=== PATIENT | female | born 1990 | race Two or more races ===

== ENCOUNTER 2018-10-17 16:30 | Emergency (ER) | payer SELFPAY ==
[~2018-10-17] VITALS: Ht 160 cm; Wt 99.8 kg
[2018-10-17 16:35] VITALS: BP 148/90
== END 2018-10-17 20:14 | disposition home or self-care (01) ==
LOC: ER 16:35
DX: J06.9 Acute upper respiratory infection, unspecified (principal); H11.31 Conjunctival hemorrhage, right eye

== ENCOUNTER 2019-02-21 11:10 | Observation (INO) | payer MEDICAID ==
[2019-02-21] MEDS ORDERED: PREN-96 PO (11:34)
[2019-02-21] MEDS ORDERED: FERR1TAB36 PO (11:35)
[2019-02-21 12:24] LABS: Basophils # (auto) 0.1 uL; Lymphocytes # (auto) 1.8 uL
[2019-02-21 12:26] LABS: Basophils % (auto) 0.7 % (0.0-2.0); Eosinophils # (auto) 0.5 uL; Eosinophils % (auto) 5.6 % (0.0-7.0); Hematocrit 31.5 % (36.0-46.0); Lymphocytes % (auto) 22.3 % (10.0-50.0); Mean Corpuscular Hemoglobin 23.6 pg (28.0-32.0); Mean Corpuscular Hgb Conc. 31.6 g/dL (32.0-36.0); Mean Corpuscular Volume 74.7 fL (80.0-100.0); Monocytes # (auto) 0.5 uL; Monocytes % (auto) 6.6 % (0.0-12.0); Neutrophils # (auto) 5.3 uL; Neutrophils % (auto) 64.8 % (37.0-80.0); Platelet Count (auto) 123 10^3/uL (140-450); Red Blood Cells 4.22 10^6/uL (4.0-5.20); Red Cell Distribution Width 15.3 % (11.8-14.3); White Blood Cell 8.1 10^3/uL (4.4-10.8)
[2019-02-21 12:41] LABS: Urine Bacteria FEW /hpf (None Seen); Urine Blood Negative /uL (Negative); Urine Specific Gravity 1.013 (1.001-1.035); Urine WBC 3 /hpf (0 - 5)
[2019-02-21 12:43] LABS: Albumin 2.5 g/dL (3.4-5.0); BUN/Creatinine Ratio 13.3; Calcium 8.6 mg/dL (8.5-10.1); Uric Acid 3.2 mg/dL (2.6-6.0)
[2019-02-21 12:46] LABS: Bilirubin, Total 0.2 mg/dL (0.2-1.0); Total Protein 6.6 g/dL (6.4-8.2)
[2019-02-21 12:47] LABS: INR 0.93 (0.9-1.15); Partial Thromboplastin Time 25.5 sec (23.78-33.04)
== END 2019-02-21 14:30 | disposition home or self-care (01) | DRG 566 ==
LOC: LDRP 11:10
PROVIDERS: ADMIT Obstetrics & Gynecology; ATTEND Obstetrics & Gynecology
DX: O13.3 Gestational [pregnancy-induced] hypertension without significant proteinuria, third trimester (principal); O26.893 Other specified pregnancy related conditions, third trimester; R51 Headache; Z87.891 Personal history of nicotine dependence; Z3A.30 30 weeks gestation of pregnancy
CPT/HCPCS: 36415; 59025; 80053; 81001; 81002; 84550; 85025; 85610; 85730; G0378

== ENCOUNTER 2019-02-26 08:40 | Observation (INO) | payer MEDICAID ==
[~2019-02-26 08:40] MED LIST: FERR1TAB36 PO; PREN-96 PO
[2019-02-26 09:57] LABS: Basophils # (auto) 0.1 uL; Lymphocytes # (auto) 1.7 uL; Monocytes # (auto) 0.4 uL; White Blood Cell 7.3 10^3/uL (4.4-10.8)
[2019-02-26 09:58] LABS: Basophils % (auto) 0.7 % (0.0-2.0); Eosinophils # (auto) 0.4 uL; Eosinophils % (auto) 5.9 % (0.0-7.0); Hematocrit 33.3 % (36.0-46.0); Hemoglobin 10.6 g/dL (12.2-16.2); Lymphocytes % (auto) 23.4 % (10.0-50.0); Mean Corpuscular Hemoglobin 24.3 pg (28.0-32.0); Mean Corpuscular Hgb Conc. 31.8 g/dL (32.0-36.0); Mean Corpuscular Volume 76.5 fL (80.0-100.0); Monocytes % (auto) 5.5 % (0.0-12.0); Neutrophils # (auto) 4.7 uL; Neutrophils % (auto) 64.5 % (37.0-80.0); Platelet Count (auto) 97 10^3/uL (140-450); Red Blood Cells 4.35 10^6/uL (4.0-5.20)
[2019-02-26] MEDS ORDERED: BETAMETHASONE ACET (6MG/ML) 5ML VIAL IM SCH (10:00)
[2019-02-26 10:16] LABS: INR 0.92 (0.9-1.15); Partial Thromboplastin Time 26.2 sec (23.78-33.04); Prothrombin Time 9.9 sec (9.27-12.13)
[2019-02-26 10:17] LABS: Albumin 2.4 g/dL (3.4-5.0); Calcium 8.7 mg/dL (8.5-10.1); Potassium 3.7 mmol/L (3.5-5.1); Uric Acid 3.8 mg/dL (2.6-6.0)
[2019-02-26 10:20] LABS: BUN/Creatinine Ratio 8.8; Bilirubin, Total 0.2 mg/dL (0.2-1.0); Total Protein 6.4 g/dL (6.4-8.2)
[2019-02-26 14:17] LABS: Protein, Urine 6.2 mg/dL (0.0-11.9)
[2019-02-26 15:08] LABS: 24 Hr. Total Protein, Urine 170.5 mg/24 Hr (<149.1)
== END 2019-02-26 10:30 | disposition home or self-care (01) | DRG 566 ==
LOC: LDRP 08:40
PROVIDERS: ADMIT Specialist; ATTEND Specialist
DX: O13.3 Gestational [pregnancy-induced] hypertension without significant proteinuria, third trimester (principal); Z3A.31 31 weeks gestation of pregnancy
CPT/HCPCS: 36415; 59025; 80053; 81002; 84156; 84550; 85025; 85610; 85730; 96372; G0378; J0702

== ENCOUNTER 2019-02-27 11:18 | Observation (INO) | payer MEDICAID ==
[~2019-02-27] VITALS: Ht 162.6 cm; Wt 110.2 kg
[2019-02-27] MEDS ORDERED: BETAMETHASONE ACET (6MG/ML) 5ML VIAL IM SCH (11:40)
== END 2019-02-27 12:15 | disposition home or self-care (01) | DRG 566 ==
LOC: LDRP 11:18
PROVIDERS: ADMIT Obstetrics & Gynecology; ATTEND Obstetrics & Gynecology
DX: O13.3 Gestational [pregnancy-induced] hypertension without significant proteinuria, third trimester (principal); Z3A.31 31 weeks gestation of pregnancy
CPT/HCPCS: 59025; 81002; 96372; G0378; J0702

== ENCOUNTER 2019-03-02 19:00 | Observation (INO) | payer MEDICAID ==
[~2019-03-02] VITALS: Ht 162.6 cm; Wt 110.2 kg
[2019-03-02 20:13] LABS: Urine Bacteria MOD /hpf (None Seen); Urine Blood Negative /uL (Negative); Urine Mucus FEW (None Seen); Urine Specific Gravity 1.024 (1.001-1.035); Urine WBC 13 /hpf (0 - 5)
== END 2019-03-02 21:10 | disposition home or self-care (01) | DRG 566 ==
LOC: LDRP 19:00
PROVIDERS: ADMIT Obstetrics & Gynecology; ATTEND Obstetrics & Gynecology
DX: O13.3 Gestational [pregnancy-induced] hypertension without significant proteinuria, third trimester (principal); Z3A.31 31 weeks gestation of pregnancy; Z87.891 Personal history of nicotine dependence
CPT/HCPCS: 59025; 76818; 81001; 81002; G0378

== ENCOUNTER 2019-03-05 08:50 | Observation (INO) | payer MEDICAID | END 2019-03-05 10:20 | disposition home or self-care (01) | DRG 566 | LOC: LDRP 08:50 | PROVIDERS: ADMIT Specialist; ATTEND Specialist | DX: O13.3 Gestational [pregnancy-induced] hypertension without significant proteinuria, third trimester (principal); O26.893 Other specified pregnancy related conditions, third trimester; N89.8 Other specified noninflammatory disorders of vagina; R51 Headache; Z3A.32 32 weeks gestation of pregnancy; Z87.891 Personal history of nicotine dependence | CPT/HCPCS: 59025; 76818; 81002; G0378 ==

== ENCOUNTER 2019-03-08 11:12 | Observation (INO) | payer MEDICAID | END 2019-03-08 12:25 | disposition home or self-care (01) | DRG 566 | LOC: LDRP 11:12 | PROVIDERS: ADMIT Obstetrics & Gynecology; ATTEND Obstetrics & Gynecology | DX: O13.3 Gestational [pregnancy-induced] hypertension without significant proteinuria, third trimester (principal); Z3A.32 32 weeks gestation of pregnancy; Z87.891 Personal history of nicotine dependence | CPT/HCPCS: 59025; 76818; 81002; G0378 ==

== ENCOUNTER 2019-03-12 09:15 | Observation (INO) | payer MEDICAID ==
[~2019-03-12] VITALS: Ht 162.6 cm; Wt 99.9 kg
[2019-03-12] MEDS ORDERED: LABE100T4 PO (09:48)
[2019-03-12] MEDS ORDERED: TERBUTALINE SULFATE 1 MG/ML 1ML VIAL SC ONE (10:35)
[2019-03-12 10:40] LABS: Protein, Urine 8.2 mg/dL (0.0-11.9)
[2019-03-12] MEDS: TERBUTALINE SULFATE 1 MG/ML 1ML VIAL SC PRN ×3 (10:41→11:43)
[2019-03-12 10:55] LABS: 24 Hr. Total Protein, Urine 155.8 mg/24 Hr (<149.1)
== END 2019-03-12 12:46 | disposition home or self-care (01) | DRG 566 ==
LOC: LDRP 09:15
PROVIDERS: ADMIT Specialist; ATTEND Specialist
DX: O13.3 Gestational [pregnancy-induced] hypertension without significant proteinuria, third trimester (principal); Z3A.33 33 weeks gestation of pregnancy; Z87.891 Personal history of nicotine dependence
CPT/HCPCS: 59025; 76818; 81002; 84156; 96372; G0378; J3105; 96365; 96366

== ENCOUNTER 2019-03-15 10:10 | Observation (INO) | payer MEDICAID ==
[~2019-03-15 10:10] MED LIST changes: +LABE100T4 PO
[2019-03-15 12:41] LABS: Hepatitis B Surface Antibody Positive
[2019-03-15 13:03] LABS: Hepatitis B Surface Antigen Negative (Negative)
== END 2019-03-15 11:45 | disposition home or self-care (01) | DRG 566 ==
LOC: LDRP 10:10
PROVIDERS: ADMIT Obstetrics & Gynecology; ATTEND Obstetrics & Gynecology
DX: O13.3 Gestational [pregnancy-induced] hypertension without significant proteinuria, third trimester (principal); Z3A.33 33 weeks gestation of pregnancy
CPT/HCPCS: 36415; 59025; 76818; 81002; 86703; 86706; 86803; 87340; G0378

== ENCOUNTER 2019-03-19 11:29 | Observation (INO) | payer MEDICAID ==
[2019-03-19 13:07] LABS: Basophils # (auto) 0.1 uL; Hemoglobin 11.2 g/dL (12.2-16.2); Lymphocytes # (auto) 1.7 uL; Monocytes # (auto) 0.4 uL; Neutrophils # (auto) 4.7 uL; Nucleated Red Blood Cells % 0.1 %
[2019-03-19 13:10] LABS: Basophils % (auto) 0.7 % (0.0-2.0); Eosinophils # (auto) 0.3 uL; Eosinophils % (auto) 3.7 % (0.0-7.0); Hematocrit 34.5 % (36.0-46.0); Lymphocytes % (auto) 23.5 % (10.0-50.0); Mean Corpuscular Hemoglobin 25.1 pg (28.0-32.0); Mean Corpuscular Hgb Conc. 32.4 g/dL (32.0-36.0); Mean Corpuscular Volume 77.5 fL (80.0-100.0); Monocytes % (auto) 6.2 % (0.0-12.0); Neutrophils % (auto) 65.9 % (37.0-80.0); Platelet Count (auto) 106 10^3/uL (140-450); Red Blood Cells 4.45 10^6/uL (4.0-5.20); White Blood Cell 7.1 10^3/uL (4.4-10.8)
[2019-03-19 13:15] LABS: INR 0.93 (0.9-1.15); Partial Thromboplastin Time 25.2 sec (23.64-32.05)
[2019-03-19 13:21] LABS: Red Cell Distribution Width 21.6 % (11.8-14.3)
[2019-03-19 13:27] LABS: Potassium 3.9 mmol/L (3.5-5.1)
[2019-03-19 13:43] LABS: Albumin 2.4 g/dL (3.4-5.0); Bilirubin, Total 0.2 mg/dL (0.2-1.0); Calcium 8.7 mg/dL (8.5-10.1); Total Protein 6.5 g/dL (6.4-8.2)
[2019-03-19 20:37] LABS: Urine Bacteria MANY /hpf (None Seen); Urine Blood Negative /uL (Negative); Urine Specific Gravity 1.009 (1.001-1.035); Urine WBC 10 /hpf (0 - 5)
== END 2019-03-19 14:00 | disposition home or self-care (01) | DRG 566 ==
LOC: LDRP 11:29
PROVIDERS: ADMIT Obstetrics & Gynecology; ATTEND Obstetrics & Gynecology
DX: O13.3 Gestational [pregnancy-induced] hypertension without significant proteinuria, third trimester (principal); O26.893 Other specified pregnancy related conditions, third trimester; R51 Headache; Z3A.34 34 weeks gestation of pregnancy
CPT/HCPCS: 36415; 59025; 76818; 80053; 81001; 81002; 84550; 85025; 85610; 85730; G0378

== ENCOUNTER 2019-03-22 10:02 | Observation (INO) | payer MEDICAID ==
[~2019-03-22] VITALS: Ht 162.6 cm; Wt 112.0 kg
[2019-03-22] MEDS: TERBUTALINE SULFATE 1 MG/ML 1ML VIAL SC SCH ×2 (12:52→13:22)
== END 2019-03-22 14:30 | disposition home or self-care (01) | DRG 566 ==
LOC: LDRP 10:02
PROVIDERS: ADMIT Specialist; ATTEND Specialist
DX: O13.3 Gestational [pregnancy-induced] hypertension without significant proteinuria, third trimester (principal); O26.893 Other specified pregnancy related conditions, third trimester; N89.8 Other specified noninflammatory disorders of vagina; Z87.891 Personal history of nicotine dependence; Z3A.34 34 weeks gestation of pregnancy
CPT/HCPCS: 59025; 76818; 81002; 96372; G0378; J3105

== ENCOUNTER 2019-03-26 11:31 | Observation (INO) | payer MEDICAID ==
[2019-03-26 14:30] LABS: Basophils # (auto) 0.1 uL; Hematocrit 36.5 % (36.0-46.0); Hemoglobin 11.8 g/dL (12.2-16.2); Mean Corpuscular Hemoglobin 25.2 pg (28.0-32.0); Monocytes # (auto) 0.5 uL; Monocytes % (auto) 7.1 % (0.0-12.0); White Blood Cell 7.7 10^3/uL (4.4-10.8)
[2019-03-26 14:32] LABS: Basophils % (auto) 0.9 % (0.0-2.0); Eosinophils # (auto) 0.4 uL; Eosinophils % (auto) 4.8 % (0.0-7.0); Lymphocytes # (auto) 1.9 uL; Lymphocytes % (auto) 24.4 % (10.0-50.0); Mean Corpuscular Hgb Conc. 32.4 g/dL (32.0-36.0); Mean Corpuscular Volume 77.8 fL (80.0-100.0); Neutrophils # (auto) 4.8 uL; Neutrophils % (auto) 62.8 % (37.0-80.0); Nucleated Red Blood Cells % 0.1 %; Platelet Count (auto) 105 10^3/uL (140-450); Red Blood Cells 4.69 10^6/uL (4.0-5.20)
[2019-03-26 14:45] LABS: Red Cell Distribution Width 23.8 % (11.8-14.3)
[2019-03-26 14:54] LABS: Albumin 2.5 g/dL (3.4-5.0); Calcium 8.7 mg/dL (8.5-10.1); Potassium 3.9 mmol/L (3.5-5.1)
[2019-03-26 14:58] LABS: BUN/Creatinine Ratio 9.8; Bilirubin, Total 0.3 mg/dL (0.2-1.0); Total Protein 6.8 g/dL (6.4-8.2); Uric Acid 4.2 mg/dL (2.6-6.0)
== END 2019-03-26 14:30 | disposition home or self-care (01) | DRG 566 ==
LOC: LDRP 11:31
PROVIDERS: ADMIT Specialist; ATTEND Specialist
DX: O13.3 Gestational [pregnancy-induced] hypertension without significant proteinuria, third trimester (principal); Z3A.35 35 weeks gestation of pregnancy; Z87.891 Personal history of nicotine dependence
CPT/HCPCS: 36415; 59025; 76818; 80053; 81002; 84550; 85025; G0378

== ENCOUNTER 2019-03-27 20:35 | Observation (INO) | payer MEDICAID ==
[2019-03-27] MEDS: TERBUTALINE SULFATE 1 MG/ML 1ML VIAL SC SCH ×3 (21:21→22:03)
== END 2019-03-27 22:30 | disposition home or self-care (01) | DRG 566 ==
LOC: LDRP 20:35
PROVIDERS: ADMIT Specialist; ATTEND Specialist
DX: O26.893 Other specified pregnancy related conditions, third trimester (principal); H53.8 Other visual disturbances; O62.9 Abnormality of forces of labor, unspecified; Z3A.35 35 weeks gestation of pregnancy; Z87.891 Personal history of nicotine dependence
CPT/HCPCS: 59025; 81002; 96372; G0378; J3105

== ENCOUNTER 2019-03-29 14:30 | Observation (INO) | payer MEDICAID | END 2019-03-29 16:00 | disposition home or self-care (01) | DRG 566 | LOC: LDRP 14:30 | PROVIDERS: ADMIT Obstetrics & Gynecology; ATTEND Obstetrics & Gynecology | DX: O13.3 Gestational [pregnancy-induced] hypertension without significant proteinuria, third trimester (principal); O62.9 Abnormality of forces of labor, unspecified; Z3A.35 35 weeks gestation of pregnancy | CPT/HCPCS: 76818; G0378; 59025; 81002 ==

== ENCOUNTER 2019-04-01 06:55 | Observation (INO) | payer MEDICAID | END 2019-04-01 09:05 | disposition home or self-care (01) | DRG 566 | LOC: LDRP 06:55 | PROVIDERS: ADMIT Obstetrics & Gynecology; ATTEND Obstetrics & Gynecology | DX: O13.3 Gestational [pregnancy-induced] hypertension without significant proteinuria, third trimester (principal); O62.9 Abnormality of forces of labor, unspecified; Z3A.36 36 weeks gestation of pregnancy; Z87.891 Personal history of nicotine dependence | CPT/HCPCS: 76818; G0378; 59025; 81002 ==

== ENCOUNTER 2019-04-05 10:15 | Observation (INO) | payer MEDICAID ==
[2019-04-05 12:06] LABS: Basophils # (auto) 0.1 uL; Basophils % (auto) 0.9 % (0.0-2.0); Eosinophils # (auto) 0.3 uL; Lymphocytes # (auto) 1.7 uL; Monocytes # (auto) 0.5 uL; Neutrophils # (auto) 4.2 uL; White Blood Cell 6.8 10^3/uL (4.4-10.8)
[2019-04-05 12:08] LABS: Eosinophils % (auto) 4.6 % (0.0-7.0); Hematocrit 37.1 % (36.0-46.0); Hemoglobin 11.9 g/dL (12.2-16.2); Lymphocytes % (auto) 24.7 % (10.0-50.0); Mean Corpuscular Hemoglobin 25.9 pg (28.0-32.0); Mean Corpuscular Hgb Conc. 32.1 g/dL (32.0-36.0); Mean Corpuscular Volume 80.5 fL (80.0-100.0); Monocytes % (auto) 7.9 % (0.0-12.0); Neutrophils % (auto) 61.9 % (37.0-80.0); Platelet Count (auto) 129 10^3/uL (140-450); Red Blood Cells 4.61 10^6/uL (4.0-5.20)
[2019-04-05 12:14] LABS: Red Cell Distribution Width 24.5 % (11.8-14.3)
[2019-04-05 12:18] LABS: Potassium 3.7 mmol/L (3.5-5.1)
[2019-04-05 12:24] LABS: INR < 0.93 (0.9-1.15); Partial Thromboplastin Time 25.4 sec (23.64-32.05)
[2019-04-05 12:25] LABS: Albumin 2.4 g/dL (3.4-5.0); BUN/Creatinine Ratio 12.8; Bilirubin, Total 0.2 mg/dL (0.2-1.0); Total Protein 6.5 g/dL (6.4-8.2); Uric Acid 3.8 mg/dL (2.6-6.0)
[2019-04-05 12:25] LABS: Urine Bacteria MANY /hpf (None Seen); Urine Blood Negative /uL (Negative); Urine Mucus FEW (None Seen); Urine WBC 11 /hpf (0 - 5)
== END 2019-04-05 13:25 | disposition home or self-care (01) | DRG 566 ==
LOC: LDRP 10:15
PROVIDERS: ADMIT Obstetrics & Gynecology; ATTEND Obstetrics & Gynecology
DX: O13.3 Gestational [pregnancy-induced] hypertension without significant proteinuria, third trimester (principal); Z3A.36 36 weeks gestation of pregnancy
CPT/HCPCS: 36415; 59025; 76818; 80053; 81001; 81002; 84550; 85025; 85610; 85730; G0378

== ENCOUNTER 2019-04-07 08:13 | Observation (INO) | payer MEDICAID ==
[~2019-04-07] VITALS: Ht 162.6 cm; Wt 113.9 kg
[2019-04-07 10:09] LABS: 24 Hr. Total Protein, Urine 201.4 mg/24 Hr (<149.1); Protein, Urine 7.6 mg/dL (0.0-11.9)
== END 2019-04-07 11:00 | disposition home or self-care (01) | DRG 566 ==
LOC: LDRP 08:13
PROVIDERS: ADMIT Specialist; ATTEND Specialist
DX: O13.3 Gestational [pregnancy-induced] hypertension without significant proteinuria, third trimester (principal); O62.9 Abnormality of forces of labor, unspecified; Z3A.37 37 weeks gestation of pregnancy; Z87.891 Personal history of nicotine dependence
CPT/HCPCS: 59025; 76818; 84156; G0378

== ENCOUNTER 2019-04-09 09:10 | Observation (INO) | payer MEDICAID ==
[2019-04-09 10:28] LABS: Basophils # (auto) 0.1 uL; Eosinophils # (auto) 0.3 uL; White Blood Cell 6.6 10^3/uL (4.4-10.8)
[2019-04-09 10:30] LABS: Hematocrit 36.3 % (36.0-46.0); Lymphocytes # (auto) 1.9 uL; Lymphocytes % (auto) 28.5 % (10.0-50.0); Mean Corpuscular Hemoglobin 26.5 pg (28.0-32.0); Mean Corpuscular Volume 80.3 fL (80.0-100.0); Monocytes # (auto) 0.3 uL; Monocytes % (auto) 5.3 % (0.0-12.0); Neutrophils % (auto) 61.2 % (37.0-80.0); Nucleated Red Blood Cells % 0.2 %; Platelet Count (auto) 108 10^3/uL (140-450); Red Blood Cells 4.51 10^6/uL (4.0-5.20)
[2019-04-09 10:38] LABS: Potassium 3.5 mmol/L (3.5-5.1)
[2019-04-09 10:43] LABS: Albumin 2.5 g/dL (3.4-5.0); BUN/Creatinine Ratio 15.4; Bilirubin, Total 0.2 mg/dL (0.2-1.0); Calcium 8.6 mg/dL (8.5-10.1); Total Protein 6.2 g/dL (6.4-8.2); Uric Acid 4.2 mg/dL (2.6-6.0)
[2019-04-09 11:40] LABS: INR < 0.93 (0.9-1.15); Partial Thromboplastin Time 25.9 sec (23.64-32.05)
== END 2019-04-09 11:30 | disposition home or self-care (01) | DRG 566 ==
LOC: LDRP 09:10
PROVIDERS: ADMIT Obstetrics & Gynecology; ATTEND Obstetrics & Gynecology
DX: O13.3 Gestational [pregnancy-induced] hypertension without significant proteinuria, third trimester (principal); Z3A.37 37 weeks gestation of pregnancy; Z87.891 Personal history of nicotine dependence
CPT/HCPCS: 36415; 59025; 76818; 80053; 81002; 84550; 85025; 85610; 85730; G0378

== ENCOUNTER 2019-04-13 11:11 | Observation (INO) | payer MEDICAID | END 2019-04-13 12:15 | disposition home or self-care (01) | DRG 566 | LOC: LDRP 11:11 | PROVIDERS: ADMIT Obstetrics & Gynecology; ATTEND Obstetrics & Gynecology | DX: O26.893 Other specified pregnancy related conditions, third trimester (principal); N89.8 Other specified noninflammatory disorders of vagina; R51 Headache; Z3A.37 37 weeks gestation of pregnancy | CPT/HCPCS: 76818; G0378; 59025; 81002 ==

== ENCOUNTER 2019-04-18 09:33 | Observation (INO) | payer MEDICAID ==
[2019-04-18] MEDS ORDERED: LABE200T18 PO (09:51)
[2019-04-18 10:42] LABS: Basophils # (auto) 0.1 uL; Basophils % (auto) 0.8 % (0.0-2.0); Eosinophils # (auto) 0.2 uL; Hemoglobin 12.2 g/dL (12.2-16.2); Lymphocytes # (auto) 1.8 uL; Monocytes # (auto) 0.5 uL
[2019-04-18 10:43] LABS: Eosinophils % (auto) 3.2 % (0.0-7.0); Lymphocytes % (auto) 26.1 % (10.0-50.0); Mean Corpuscular Hemoglobin 26.2 pg (28.0-32.0); Mean Corpuscular Hgb Conc. 32.1 g/dL (32.0-36.0); Mean Corpuscular Volume 81.7 fL (80.0-100.0); Monocytes % (auto) 7.5 % (0.0-12.0); Neutrophils # (auto) 4.3 uL; Neutrophils % (auto) 62.4 % (37.0-80.0); Nucleated Red Blood Cells % 0.1 %; Platelet Count (auto) 102 10^3/uL (140-450); Red Blood Cells 4.65 10^6/uL (4.0-5.20); White Blood Cell 6.9 10^3/uL (4.4-10.8)
[2019-04-18 10:48] LABS: Urine Bacteria FEW /hpf (None Seen); Urine Blood Negative /uL (Negative); Urine Mucus FEW (None Seen); Urine Specific Gravity 1.025 (1.001-1.035); Urine WBC 4 /hpf (0 - 5)
[2019-04-18 10:59] LABS: INR < 0.93 (0.9-1.15); Partial Thromboplastin Time 24.2 sec (23.64-32.05)
[2019-04-18 11:02] LABS: Albumin 2.5 g/dL (3.4-5.0); BUN/Creatinine Ratio 15.2; Calcium 9.3 mg/dL (8.5-10.1); Uric Acid 5.5 mg/dL (2.6-6.0)
[2019-04-18 11:30] LABS: Bilirubin, Total 0.2 mg/dL (0.2-1.0); Potassium 3.7 mmol/L (3.5-5.1); Total Protein 6.6 g/dL (6.4-8.2)
[2019-04-19 07:06] LABS: RPR Non Reactive (Non Reactive)
== END 2019-04-18 11:55 | disposition home or self-care (01) | DRG 566 ==
LOC: LDRP 09:33
PROVIDERS: ADMIT Specialist; ATTEND Specialist
DX: O13.3 Gestational [pregnancy-induced] hypertension without significant proteinuria, third trimester (principal); O12.03 Gestational edema, third trimester; Z3A.38 38 weeks gestation of pregnancy; Z87.891 Personal history of nicotine dependence
CPT/HCPCS: 36415; 59025; 76818; 80053; 81001; 84112; 84550; 85025; 85610; 85730; 86592; 86850; 86900; 86901; G0378

== ENCOUNTER 2019-04-20 04:02 | Inpatient (IN) | payer MEDICAID ==
[~2019-04-20] VITALS: Ht 162.6 cm; Wt 115.7 kg
[2019-04-20] VITALS (17 sets, daily range): BP systolic 98–152; BP diastolic 44–94
[~2019-04-20 04:02] MED LIST changes: -LABE100T4 PO; +LABE200T18 PO
[2019-04-20 06:09] LABS: Basophils # (auto) 0 uL; Basophils % (auto) 0.6 % (0.0-2.0); Eosinophils # (auto) 0.3 uL; Eosinophils % (auto) 3.9 % (0.0-7.0); Hematocrit 35.8 % (36.0-46.0); Hemoglobin 11.9 g/dL (12.2-16.2); Lymphocytes % (auto) 25.9 % (10.0-50.0); Mean Corpuscular Hemoglobin 27.3 pg (28.0-32.0); Mean Corpuscular Hgb Conc. 33.2 g/dL (32.0-36.0); Mean Corpuscular Volume 82.1 fL (80.0-100.0); Monocytes # (auto) 0.5 uL; Monocytes % (auto) 6.1 % (0.0-12.0); Neutrophils # (auto) 4.8 uL; Neutrophils % (auto) 63.5 % (37.0-80.0); Platelet Count (auto) 98 10^3/uL (140-450); Red Blood Cells 4.36 10^6/uL (4.0-5.20); White Blood Cell 7.6 10^3/uL (4.4-10.8)
[2019-04-20 06:10] LABS: Red Cell Distribution Width 24.4 % (11.8-14.3)
[2019-04-20] MEDS ORDERED: TETRACAINE 1% INJ 2 ML VIAL IJ ONE (07:48)
[2019-04-20] MEDS ORDERED: MORPHINE SULF(PF) 0.5MG/ML 10ML VIAL ONE (07:50)
[2019-04-20] MEDS ORDERED: OXYTOCIN 10 UNIT/ML 10ML VIAL ONE (07:54)
[2019-04-20] MEDS ORDERED: PHENYLEPHRINE HCL 10 MG/ML VL ONE (07:55)
[2019-04-20] MEDS ORDERED: ePHEDrine SULFATE 50 MG/ML AMP ONE (07:55)
[2019-04-20] MEDS ORDERED: ceFAZolin 1GM VL ONE (07:55)
[2019-04-20] MEDS ORDERED: METOCLOPRAMIDE HCL 5MG/ml INJ 2ml VIAL ONE (08:34)
[2019-04-20] MEDS ORDERED: MIDAZOLAM HCL 1MG/1ML-2 ML VIAL ONE (08:55)
[2019-04-20] MEDS ORDERED: ONDANSETRON HCL 4 MG/2 ML VIAL ONE (08:56)
[2019-04-20] MEDS ORDERED: LACT. RINGERS/OXYTOCIN 20UNITS 1,000 ML IV SCH (09:20)
[2019-04-20] MEDS ORDERED: ceFAZolin 1GM/50ML 50 ML IV SCH (09:30)
[2019-04-20] MEDS ORDERED: KETOROLAC TROMETH 15 mg/ml 1ML VL IV PRN (09:30)
[2019-04-20] MEDS ORDERED: ONDANSETRON HCL 4 MG/2 ML VIAL IV PRN (09:30)
[2019-04-20] MEDS ORDERED: ONDANSETRON HCL 4 MG/2 ML VIAL IV ONE (09:45)
[2019-04-20] MEDS ORDERED: NALOXONE HCL 0.4 MG/ML VIAL IV PRN (09:45)
[2019-04-20] MEDS ORDERED: HYDROmorphone HCL 2 MG/ML VL IV PRN (09:45)
[2019-04-20] MEDS ORDERED: diphenhdrAMINE HCL 50 MG/1 ML VL IV PRN (09:45)
[2019-04-20] MEDS ORDERED: OXYTOCIN 10UNIT/ML 1ML VIAL ONE (09:53)
--- NOTE | 2019-04-20 10:11 | NUR ---
Report received from BENDING SHED WORKERJUANA Gibbons on stable pt. VS reviewed, meds given reviewed, 325 ml urine output with grady in place, fundus 1 below U with scant bleeding, and lower abdominal incision dressing c/d/i.
--- NOTE | 2019-04-20 10:24 | NUR ---
Pt arrives to the unit via bed in stable condition, accompanied by MACHINE I COREMAKER Haris Pope. Fundal check performed with MACHINE I COREMAKER, fundus noted to be at U, firm with moderate bleeding with a small clot noted. Olivia care performed and olivia pad and underpad changed. Pt tolerated well.
--- NOTE | 2019-04-20 10:30 | NUR ---
Lower abdominal incision dressing C/D/I with abdominal binder in place. Incentive Spirometer at bedside, pt educated on importance of use at least 10 x hour while awake, pt verbalizes understanding of teaching and return demonstration provided. SCD's on and running. Pt stable, VS stable. call light within reach and FOB at bedside. Addendum: 04/20/19 at 1459 by Kandace Romero RN Amended: Links added.
--- NOTE | 2019-04-20 11:25 | NUR ---
DR DICKSON NOTIFIED AND INFORMED OF PT'S MODERATE BLEEDING WITH A FIRM FUNDUS. ORDERS RECEIVED FOR CYTOTEC 800 MCG 200 SUBLINGUAL AND 600 RECTAL FOR BLEEDING.
[2019-04-20] MEDS ORDERED: METHYLERGONOVINE MALEATE 0.2 MG/ML AMP IM ONE (11:30)
[2019-04-20] MEDS: MORPHINE SULFATE 4 MG/ML SYR/VIAL IV PRN ×3 (12:00→20:16)
[2019-04-20] MEDS: LACTATED RINGER'S 1,000 ML IV SCH ×3 (12:35→17:43)
[2019-04-20] MEDS ORDERED: CARBOPROST TROMETHAMINE 250 MCG/1ML VIAL IM PRN (13:15)
[2019-04-20] MEDS ORDERED: DIPHENOXYLATE W/ATROPINE 2.5 MG TAB PO PRN (13:15)
--- NOTE | 2019-04-20 14:35 | NUR ---
Dr. Elizondo called and informed of VS trends, urine output, and scant bleeding noted. Orders received for IV Tylenol x 1 dose for pain and notify Dr. Elizondo if BP's elevate above 160/95, for further orders.
[2019-04-20] MEDS ORDERED: ACETAMINOPHEN IV 1000 MG/100ML (10MG/ML) IV ONE (14:45)
[2019-04-20] MEDS ORDERED: ACETAMINOPHEN IV 100 ML IV ONE (15:08)
[2019-04-20] MEDS: ceFAZolin 1GM/50ML 50 ML IV SCH (16:42)
--- NOTE | 2019-04-20 18:30 | NUR ---
Report given to Garth OLIVAS RN on stable pt. Relinquished care. Addendum: 04/20/19 at 1835 by Kandace Romero RN Amended: Links added.
--- NOTE | 2019-04-20 19:40 | NUR ---
Dr. Elizondo called, updated on patient, VS reviewed, informed uterus firm, scant bleeding. Per Dr. Elizondo patient okay to have clear liquids.
[2019-04-20 20:13] LABS: Basophils # (auto) 0.1 uL; Basophils % (auto) 0.6 % (0.0-2.0); Eosinophils # (auto) 0.1 uL; White Blood Cell 11.4 10^3/uL (4.4-10.8)
[2019-04-20 20:14] LABS: Eosinophils % (auto) 0.8 % (0.0-7.0); Hematocrit 30.8 % (36.0-46.0); Lymphocytes # (auto) 1.8 uL; Lymphocytes % (auto) 15.5 % (10.0-50.0); Mean Corpuscular Hemoglobin 26.9 pg (28.0-32.0); Mean Corpuscular Hgb Conc. 32.3 g/dL (32.0-36.0); Mean Corpuscular Volume 83.1 fL (80.0-100.0); Monocytes # (auto) 0.6 uL; Monocytes % (auto) 5.6 % (0.0-12.0); Neutrophils # (auto) 8.9 uL; Neutrophils % (auto) 77.5 % (37.0-80.0); Platelet Count (auto) 109 10^3/uL (140-450); Red Blood Cells 3.71 10^6/uL (4.0-5.20)
[2019-04-20 20:16] LABS: Red Cell Distribution Width 24.2 % (11.8-14.3)
--- NOTE | 2019-04-20 20:25 | NUR ---
Dr. Elizondo updated on patient status including most recent CBC results. No changes in current POC.
[2019-04-20] MEDS: KETOROLAC TROMETH 15 mg/ml 1ML VL IV PRN (21:17)
--- NOTE | 2019-04-20 22:00 | NUR ---
Ambulation: Pericare done, clean peripad and underwear provided. Patient OOB with standby assistance by RN to bedside chair. Patient ambulated with steady gait. Clean gown provided and bed linen changed. Patient verbalizes that she has ringing in ears and feels dizzy. Patient back to bed with two RN assisting, patient positions self in bed for comfort, no further complaints of dizziness. Patient educated on importance of not getting out of bed without assistance, patient verbalizes understanding, call light placed within reach and patient able to make needs known.
[2019-04-21] VITALS (26 sets, daily range): BP systolic 106–126; BP diastolic 53–95
[2019-04-21] MEDS: ceFAZolin 1GM/50ML 50 ML IV SCH ×3 (00:31→21:31)
[2019-04-21] MEDS: MORPHINE SULFATE 4 MG/ML SYR/VIAL IV PRN (00:31)
--- NOTE | 2019-04-21 01:00 | NUR ---
Dr. Elizondo calls unit, updated on patient status including urine output. Orders received for 500mL LR bolus and to instruct patient to increase PO hydration. Orders will be followed.
--- NOTE | 2019-04-21 01:01 | NUR ---
LR bolus started per Dr. Elizondo, patient provided with pitcher full of ice water and instructed to finish pitcher within 30min. Patient verbalizes understanding and agrees to comply. Will continue care.
--- NOTE | 2019-04-21 01:51 | NUR ---
Dr. Elizondo places call to unit, updated regarding pt including current unrine output, vital signs reviewed. Orders received to administer 500ml fluid bolus at this time, administer 20MG Lasix if urine output does not improve. Orders will be followed.
--- NOTE | 2019-04-21 02:06 | NUR ---
500 mL LR bolus started per Dr. Elizondo.
[2019-04-21] MEDS: LACTATED RINGER'S 1,000 ML IV SCH ×6 (02:44→23:00)
[2019-04-21] MEDS: KETOROLAC TROMETH 15 mg/ml 1ML VL IV PRN (03:14)
--- NOTE | 2019-04-21 04:11 | NUR ---
Dr. aCro chin, updated on patient status, I&O reviewed, VS reviewed, informed patietn fundus 1 above umbilicus and abdomen firm and tender upon palpation. Orders received to replace grady, stat CBC, and to administer 20mg of lasix IV once. Orders will be followed.
--- NOTE | 2019-04-21 04:30 | NUR ---
Patient educated on POC. Pina catheter DC'd using aseptic technique, new Pina catheter inserted using sterile technique and secured with leg anchor. Patient tolerated well.
--- NOTE | 2019-04-21 04:40 | NUR ---
Dr. Elizondo calls unit, informed grady catheter replaced with no return of urine but grady bulb in place. Orders received for CT of abd and pelvis with and without contrast, US of abd and pelvis, and patient to be NPO, hourly I&O, and BP/HR/O2sat q15min. Orders will be followed.
[2019-04-21] MEDS ORDERED: FUROSEMIDE 20 MG/2 ML VIAL IV SCH (04:45)
[2019-04-21] MEDS ORDERED: FUROSEMIDE 20 MG/2 ML VIAL IV ONE ×2 (04:45→19:45)
[2019-04-21] MEDS ORDERED: MORPHINE SULF INJ 2 MG/ML SYRINGE 1ML ONE (04:46)
--- NOTE | 2019-04-21 05:11 | NUR ---
Lab at bedside.
[2019-04-21] MEDS ORDERED: IOHEXOL 300 MG/ML 100ML BOTTLE IJ ONE (05:29)
--- NOTE | 2019-04-21 05:30 | NUR ---
Alise US tech at bedside for US of pelvis.
--- NOTE | 2019-04-21 05:50 | NUR ---
Critical lab Spoke with lab while primary RN on phone with Dr. Elizondo. Critical Hgb 6.5 read back and verified- notified primary RN of lab value with immediate read back to Dr. Elizondo via telephone.
--- NOTE | 2019-04-21 05:50 | NUR ---
Dr. Elizondo called, updated on patient status including VS, and US tech at bedside finishing pelvic US. Dr Elizondo requests to speak to [facility] Jake, [facility] speaking to Dr. Elizondo on phone. Lab calls unit while RN on phone with Dr Elizondo with a critical lab value of hgb 6.5. Orders received for [address] scan performed. Orders will be followed.
[2019-04-21 05:55] LABS: Basophils # (auto) 0 uL; Basophils % (auto) 0.3 % (0.0-2.0); Eosinophils # (auto) 0.1 uL; Eosinophils % (auto) 0.6 % (0.0-7.0); Hematocrit 19.5 % (36.0-46.0); Lymphocytes # (auto) 1.7 uL; Lymphocytes % (auto) 14.9 % (10.0-50.0); Mean Corpuscular Hemoglobin 27.6 pg (28.0-32.0); Mean Corpuscular Hgb Conc. 33.2 g/dL (32.0-36.0); Mean Corpuscular Volume 83.1 fL (80.0-100.0); Monocytes # (auto) 0.8 uL; Monocytes % (auto) 6.7 % (0.0-12.0); Neutrophils # (auto) 8.8 uL; Neutrophils % (auto) 77.5 % (37.0-80.0); Platelet Count (auto) 97 10^3/uL (140-450); Red Blood Cells 2.34 10^6/uL (4.0-5.20); White Blood Cell 11.3 10^3/uL (4.4-10.8)
[2019-04-21 05:57] LABS: Hemoglobin 6.5 g/dL (12.2-16.2)
--- NOTE | 2019-04-21 06:00 | NUR ---
optical coating technician at bedside, patient taken to radiology for CT scan by tech. Will endorse to dayshift RN.
--- NOTE | 2019-04-21 06:28 | NUR ---
Patient returns from CT scan.
--- NOTE | 2019-04-21 06:30 | NUR ---
Dr. Elizondo called, full CBC results reviewed, orders received for 1 unit fo fresh frozen plasma. Orders will be followed and endorsed to Breanne ARIAS.
--- NOTE | 2019-04-21 07:40 | NUR ---
first bag of PRBC started as ordered after checking with CHHAYA ARIAS.
[2019-04-21] MEDS ORDERED: TETANUS-DIPTH-ACEL PERTUSSIS 0.5ML SYRG IM ONE (08:00)
[2019-04-21] MEDS ORDERED: HYDROcodone-ACET 5/325MG TAB PO PRN (08:45)
[2019-04-21] MEDS ORDERED: BISACODYL 10 MG RECT SUPP PR PRN (08:45)
[2019-04-21] MEDS ORDERED: IBUPROFEN 800 MG TAB PO PRN (08:45)
[2019-04-21 09:12] LABS: INR 0.95 (0.9-1.15); Partial Thromboplastin Time 25.1 sec (23.64-32.05)
[2019-04-21] MEDS: FERROUS SULFATE 325 MG TAB PO SCH ×2 (09:40→21:32)
[2019-04-21] MEDS: HYDROcodone-ACET 5/325MG TAB PO PRN ×3 (09:41→19:21)
[2019-04-21] MEDS: DOCUSATE CALCIUM 240 MG CAP PO SCH (10:00)
[2019-04-21] MEDS: DOCUSATE SOD 100 MG CAP PO SCH ×2 (10:00→21:32)
--- NOTE | 2019-04-21 10:00 | NUR ---
olivia care done,with small bleeding.no clots.
--- NOTE | 2019-04-21 10:10 | NUR ---
first bag of PRBC finished without any problems.tolerated well.
--- NOTE | 2019-04-21 10:40 | NUR ---
first bag of FROZEN PLASMA started after checking with connor duke rn.
[2019-04-21] MEDS: SIMETHICONE 80 MG CHEWABLE TABLET PO SCH ×3 (12:00→21:32)
--- NOTE | 2019-04-21 12:30 | NUR ---
second bag of PRBC started after checking with princess sullivan rn.
--- NOTE | 2019-04-21 14:30 | NUR ---
second bag of PRBC finished without any problems.dr. boateng was called and updated on patient's status,received order to do CBC 2 hrs post transfusion.
--- NOTE | 2019-04-21 16:00 | NUR ---
dr. boateng came in and seen the patient,received order to keep the iv running at 80 ml/hr and to continue ancef 1 gm q8 hrs thru iv piggy back.
--- NOTE | 2019-04-21 17:20 | NUR ---
olivia care done,with small bleeding with no clots.grady bag emptied and obtained 500 ml of yellow clear urine.
[2019-04-21 17:29] LABS: Basophils # (auto) 0 uL; Eosinophils # (auto) 0.1 uL; Eosinophils % (auto) 0.8 % (0.0-7.0); Mean Corpuscular Volume 83.4 fL (80.0-100.0); Monocytes # (auto) 0.6 uL; Neutrophils # (auto) 6.5 uL
[2019-04-21 17:30] LABS: Basophils % (auto) 0.4 % (0.0-2.0); Hematocrit 20.8 % (36.0-46.0); Lymphocytes # (auto) 1.7 uL; Lymphocytes % (auto) 19.2 % (10.0-50.0); Mean Corpuscular Hemoglobin 27.7 pg (28.0-32.0); Mean Corpuscular Hgb Conc. 33.2 g/dL (32.0-36.0); Monocytes % (auto) 6.8 % (0.0-12.0); Neutrophils % (auto) 72.8 % (37.0-80.0); White Blood Cell 8.9 10^3/uL (4.4-10.8)
[2019-04-21 17:38] LABS: Red Cell Distribution Width 21.6 % (11.8-14.3)
[2019-04-21 17:41] LABS: Platelet Count (auto) 95 10^3/uL (140-450)
--- NOTE | 2019-04-21 17:52 | NUR ---
dr. boateng was called and relayed the hgb result which is 7.0 and hct-20.8,received order to transfuse 2 more units of PRBC and re check the CBC tomorrow 04-22-19 at 0600.
--- NOTE | 2019-04-21 18:45 | NUR ---
IS teaching provided to patient. Instructed to use IS at least 10x an hour. Patient verbalizes understanding.
--- NOTE | 2019-04-21 19:35 | NUR ---
Dr. Elizondo updated regarding pt including VS trends, urine output, pt currently receiving 4th unit PRBCs. Orders received to hold 5th unit of PRBCs, administer 20mg LAsix IVP following administration of 4th unit of PRBCs. Orders received to continue to monitor pt VS q15m, closely monitor hourly urine output. CBC will be redrawn at time TBD by Dr. Elizondo. Orders will be followe.d Addendum: 04/21/19 at 2030 by Minerva Ha RN Dr. Elizondo updated regarding pt including VS trends, urine output, pt currently receiving 3rd unit PRBCs. Orders received to hold 4th unit of PRBCs, administer 20mg LAsix IVP following administration of 4th unit of PRBCs. Orders received to continue to monitor pt VS q15m, closely monitor hourly urine output. CBC will be redrawn at time TBD by Dr. Elizondo. Orders will be followe.d
--- NOTE | 2019-04-21 22:06 | NUR ---
at bedside assessing patient. Orders to decrease LR to 50ml/hr. Will continue to monitor.
--- NOTE | 2019-04-21 22:50 | NUR ---
at nurses station, updated on pt status, v/s and output. Orders received for 0500 lab draw for CBC/CMP by . Will follow orders.
[2019-04-22] VITALS (44 sets, daily range): BP systolic 98–140; BP diastolic 61–85
[2019-04-22] MEDS: HYDROcodone-ACET 5/325MG TAB PO PRN ×4 (01:21→19:04)
--- NOTE | 2019-04-22 02:54 | NUR ---
calls for update on patient. Vital signs and urine output since 2099 reviewed. made aware that perineum and pubis area is very swollen but not tender to touch. Orders given to place 5lb sand bag on site. Will follow orders.
--- NOTE | 2019-04-22 03:15 | NUR ---
Called other units for 5lbs sand bag but only a 10lbs bag was available. Called and she states it is okay to use 10lb bag.
--- NOTE | 2019-04-22 03:30 | NUR ---
10lbs sand bag placed on mons pubis, with no pain at site. Instructed patient to let nurse aware if pain occurs at site. Patient verbalizes understanding.
--- NOTE | 2019-04-22 05:08 | NUR ---
Large blood clot noted on patient's pad and weighed on scale of 68ml.
[2019-04-22] MEDS: SIMETHICONE 80 MG CHEWABLE TABLET PO SCH ×4 (05:35→21:51)
[2019-04-22] MEDS: ceFAZolin 1GM/50ML 50 ML IV SCH ×3 (05:35→21:48)
--- NOTE | 2019-04-22 06:15 | NUR ---
Report received from DEISY Elizabeth on stable pt. Assumed care of pt. Addendum: 04/22/19 at 0748 by Kandace Romero RN Amended: Links added.
--- NOTE | 2019-04-22 07:00 | NUR ---
Lower abdominal incision open to air, well approximated with ton intact. Minimal lower abdominal bruising noted with moderate swelling in the labia, sand bag in place, per orders. Abdominal binder in place. Incentive spirometer at bedside, pt educated on importance of using the IS at least 10 x hour while awake, Pt verbalizes understanding of teaching and return demonstration given. Addendum: 04/22/19 at 0844 by Kandace Romero RN Amended: Links added.
[2019-04-22 07:16] LABS: Basophils # (auto) 0 uL; Basophils % (auto) 0.4 % (0.0-2.0); Eosinophils # (auto) 0.1 uL; Lymphocytes # (auto) 1.6 uL; Lymphocytes % (auto) 17.8 % (10.0-50.0); Mean Corpuscular Hemoglobin 28.2 pg (28.0-32.0)
[2019-04-22 07:17] LABS: Hematocrit 21.6 % (36.0-46.0); Hemoglobin 7.3 g/dL (12.2-16.2); Monocytes # (auto) 0.7 uL; Monocytes % (auto) 7.3 % (0.0-12.0); Neutrophils # (auto) 6.6 uL; Neutrophils % (auto) 73.5 % (37.0-80.0); Platelet Count (auto) 106 10^3/uL (140-450)
[2019-04-22 07:25] LABS: Albumin 1.8 g/dL (3.4-5.0); Anion Gap 11 (5-15); Blood Urea Nitrogen 6 mg/dL (7-18); Calcium 7.6 mg/dL (8.5-10.1); Carbon Dioxide 23 mmol/L (21-32); Chloride 110 mmol/L (98-107); Glucose 87 mg/dL (74-106); Potassium 3.6 mmol/L (3.5-5.1); Sodium 144 mmol/L (136-145)
[2019-04-22 07:27] LABS: Alanine Aminotransferase 9 U/L (13-56); Aspartate Aminotransferase 22 U/L (15-37); GFR African American 190 mL/min; GFR Non-African American 157 mL/min
[2019-04-22 07:30] LABS: Alkaline Phosphatase 76 U/L (45-117); Bilirubin, Total 0.2 mg/dL (0.2-1.0); Total Protein 5.1 g/dL (6.4-8.2)
[2019-04-22 08:07] LABS: Red Cell Distribution Width 20.9 % (11.8-14.3)
--- NOTE | 2019-04-22 08:10 | NUR ---
Dr. Elizondo calls unit and speaks with this RN, SBAR given to include: VS, urine output, fundal and lochia assessment, and labial swelling noted. Lungs clear and incision site SHOP [place], well approximated with ton intact, no redness or drainage noted. Labs drawn and results pending.
--- NOTE | 2019-04-22 08:14 | NUR ---
Call placed to Dr. Elizondo, informed of CBC results (Hgb 7.3/Hct 21.6, and all other results given) CMP results reviewed. Orders received to transfuse 2 more units of Packed RBC's and Dr. Muniz will be called to assess pt. Orders to be followed.
--- NOTE | 2019-04-22 08:33 | NUR ---
Dr. Elizondo at bedside to assess pt, VS and urine output reviewed.
[2019-04-22] MEDS: FERROUS SULFATE 325 MG TAB PO SCH ×3 (10:00→21:50)
[2019-04-22] MEDS: DOCUSATE SOD 100 MG CAP PO SCH ×3 (10:00→21:51)
[2019-04-22] MEDS: DOCUSATE CALCIUM 240 MG CAP PO SCH ×2 (10:00→12:07)
--- NOTE | 2019-04-22 10:15 | NUR ---
Dr. Elizondo and Dr. Clark at bedside to assess pt's incision and labial swelling. No new orders received at this time.
--- NOTE | 2019-04-22 10:20 | NUR ---
Dr. Elizondo at nurses station, orders received to obtain another CT scan of the abdomen and pelvis with and without contrast.
--- NOTE | 2019-04-22 10:45 | NUR ---
Dr. Muniz at bedside to assess pt's abdomen and labial swelling. Orders received to apply ice to labia for pt comfort and continue using the sandbag.
[2019-04-22] MEDS ORDERED: IOHEXOL 300 MG/ML 100ML BOTTLE IJ ONE (10:46)
--- NOTE | 2019-04-22 10:53 | NUR ---
Pt transported off unit to radiology via bed, VS stable. Pt stable. No signs of distress or discomfort noted.
--- NOTE | 2019-04-22 11:15 | NUR ---
Pt returns to unit from radiology. VS taken and stable, 20G IV in left hand infusing PRBC's at 150 ml/hr, site benign and infusing well. No signs of distress or discomfort noted.
--- NOTE | 2019-04-22 11:53 | NUR ---
Dr. Elizondo calls the unit and speaks to this RN for update on CT scan, report reviewed with Dr. Elizondo and orders received for pt to continue with CLD, pt to receive 2nd unit of PRBC's. Orders to be followed.
[2019-04-22] MEDS ORDERED: FUROSEMIDE 20 MG/2 ML VIAL IV ONE (12:30)
--- NOTE | 2019-04-22 15:10 | NUR ---
Olivia care performed, olivia pad and under pad changed. Addendum: 04/22/19 at 1551 by Kandace Romero RN Amended: Links added.
--- NOTE | 2019-04-22 15:15 | NUR ---
Dr. Elizondo at bedside to assess pt. Vs reviewed and urine output reviewed. Orders received, okay to ambulate pt to chair once 2nd unit of PRBC's infuses and pt is stable for ambulation.
--- NOTE | 2019-04-22 16:05 | NUR ---
Orders per SUMMER Cifuentes to infuse at 30ml/hr after blood transfusion is completed and CBC to be drawn at 0600 on 04/23/19.
--- NOTE | 2019-04-22 17:15 | NUR ---
Ambulation: Pt's fundus and lochia checked, prior to ambulation. Pt assisted to side of bed to dangle, VS taken and stable. Pt denies any dizziness, Patient OOB with standby assistance by RN to chair with steady gait. Pt tolerated well, no signs of distress or discomfort noted.
--- NOTE | 2019-04-22 17:58 | NUR ---
Call placed to Dr. Elizondo by this RN, orders received to continue with hourly vital signs until midnight.
--- NOTE | 2019-04-22 18:10 | NUR ---
Pt states that she is feeling a little dizzy, Patient ambulated back to bed with steady gait and no distress noted. VS taken and stable, small amount of bleeding noted with a few small clots on olivia pad, olivia care performed and peripad and underpad changed. Pt tolerated well, no signs of distress or discomfort noted. Call light within reach and FOB at bedside.
[2019-04-22] MEDS: LACTATED RINGER'S 1,000 ML IV SCH (18:15)
--- NOTE | 2019-04-22 18:20 | NUR ---
Report given to Dilshad Nuñez RN on stable pt. Relinquished care. Addendum: 04/22/19 at 1852 by Kandace Romero RN Amended: Links added.
--- NOTE | 2019-04-22 20:00 | NUR ---
10 pound weight to mons pubis remains in place - minimal to moderate edema noted. Labial edema noted.
--- NOTE | 2019-04-22 20:48 | NUR ---
Phototherapy teaching given to parents including plan of care. Parents verbalize understanding and agree to POC. Addendum: 04/22/19 at 2052 by Yi Nuñez RN Amended: Links added.
--- NOTE | 2019-04-22 23:00 | NUR ---
10 pound weight moved from mons pubis to Labial area. No increase in edema to either mons pubis or labia noted.
[2019-04-23] VITALS (7 sets, daily range): BP systolic 100–140; BP diastolic 58–84
[2019-04-23] MEDS: HYDROcodone-ACET 5/325MG TAB PO PRN ×5 (00:03→20:41)
--- NOTE | 2019-04-23 00:40 | NUR ---
PT. requests OOB to BR. PT. ambulates to BR without difficulty or dizziness. PT. states, "I feel good".
--- NOTE | 2019-04-23 01:00 | NUR ---
0100: PT. passes flatus and has large Bowel Movement visualized by this RN. PT. states, "I feel so much better". 0110: Angela care performed. PT. ambulates in hallway with FOB without difficulty or dizziness. 0120: PT. back to bed and requests to return to bed without staff assistance. PT. given permission to return to bed without assistance and to let staff know if assist eventually is required. PT. and FOB verbalize understanding.
--- NOTE | 2019-04-23 02:50 | NUR ---
Dr. Elizondo given update on PT. status including VS, afebrile, urine output WNL, Large BM, passing gas, tolerating soft diet, no increase of edema to mons pubis or labia and ambulated in hallway. Orders received to remove Pina catheter and Saline lock IV.
--- NOTE | 2019-04-23 05:00 | NUR ---
Pina bulb deflated and catheter removed without difficulty. PT. OOB to BR without difficulty or dizziness. PT. requests to perform olivia care independently. FOB remains in room with PT.
--- NOTE | 2019-04-23 05:30 | NUR ---
PT. has large BM.
--- NOTE | 2019-04-23 05:36 | NUR ---
Dr. Elizondo at Pt's bedside performing assessment. Dr. Elizondo orders for 10 lb weight to remain in place and alternate between mons pubis and labia.
[2019-04-23] MEDS: ceFAZolin 1GM/50ML 50 ML IV SCH ×3 (05:45→21:59)
[2019-04-23] MEDS: SIMETHICONE 80 MG CHEWABLE TABLET PO SCH ×4 (05:46→21:58)
--- NOTE | 2019-04-23 06:20 | NUR ---
Report received from DEISY Nuñez on stable pt. Assumed care. Addendum: 04/23/19 at 0914 by Kandace Romero RN Amended: Links added.
[2019-04-23 06:44] LABS: Basophils # (auto) 0 uL; Basophils % (auto) 0.4 % (0.0-2.0); Eosinophils # (auto) 0.3 uL; Eosinophils % (auto) 2.8 % (0.0-7.0); Hemoglobin 9.2 g/dL (12.2-16.2); Lymphocytes # (auto) 1.8 uL; Lymphocytes % (auto) 17.9 % (10.0-50.0); Mean Corpuscular Hemoglobin 28.9 pg (28.0-32.0); Monocytes # (auto) 0.7 uL; Neutrophils # (auto) 7.1 uL; Neutrophils % (auto) 71.9 % (37.0-80.0); Nucleated Red Blood Cells % 0.4 %; Platelet Count (auto) 124 10^3/uL (140-450); Red Blood Cells 3.17 10^6/uL (4.0-5.20); Red Cell Distribution Width 19.2 % (11.8-14.3); White Blood Cell 9.9 10^3/uL (4.4-10.8)
--- NOTE | 2019-04-23 07:18 | NUR ---
lower abdominal incision open to air, well approximated with ton intact, no redness, bleeding, or drainage noted, abdominal binder in place. Incentive spirometer at bedside, pt educated on use and pt verbalizes understanding and return demonstration provided by pt. Addendum: 04/23/19 at 1912 by Kandace Romero RN Amended: Links added.
[2019-04-23] MEDS: DOCUSATE SOD 100 MG CAP PO SCH ×2 (09:59→21:59)
[2019-04-23] MEDS: DOCUSATE CALCIUM 240 MG CAP PO SCH (09:59)
[2019-04-23] MEDS: FERROUS SULFATE 325 MG TAB PO SCH ×2 (09:59→21:58)
[2019-04-23] MEDS: LACTATED RINGER'S 1,000 ML IV SCH (15:46)
--- NOTE | 2019-04-24 00:15 | NUR ---
Assumed care of PT. after receiving report from Billy Romero RN for continuity of care.
--- NOTE | 2019-04-24 00:15 | NUR ---
Report given to Dilshad Nuñez RN on stable pt. Relinquished care.
[2019-04-24] MEDS: HYDROcodone-ACET 5/325MG TAB PO PRN ×2 (02:03→05:56)
[2019-04-24 02:57] VITALS: BP 111/68
--- NOTE | 2019-04-24 04:15 | NUR ---
received report from liane ghosh rn and [facility].
--- NOTE | 2019-04-24 04:15 | NUR ---
Report on stable PT. given to Dory Stanton RN for continuity of care.
[2019-04-24] MEDS: ceFAZolin 1GM/50ML 50 ML IV SCH (05:06)
[2019-04-24] MEDS: SIMETHICONE 80 MG CHEWABLE TABLET PO SCH (05:54)
--- NOTE | 2019-04-24 06:30 | NUR ---
2 iv line removed and discontinued.2x2 pressure dressing applied.no bleeding noted.
[2019-04-24 08:00] VITALS: BP 125/75
[2019-04-24] MEDS ORDERED: TETANUS-DIPTH-ACEL PERTUSSIS 0.5ML SYRG IM ONE (09:00)
--- NOTE | 2019-04-24 09:20 | NUR ---
Discharge: Discharge instructions given to mother of baby as ordered. Copies of and hearing screening, along with vaccination record given to mother. Mother encouraged to follow up with Master Printer of choice and to give envelope with infants information to engine cleaner at 1st office visit. All questions and concerns addressed. Mother of baby verbalized understanding and agreed to comply. Mother of baby encouraged to prepare for departure and notify RN ready to leave room for ID band removal/verification and car seat check.
--- NOTE | 2019-04-24 09:20 | NUR ---
Discharge: Discharge instructions given as ordered. Pt encouraged to follow up with ONLINE CONTENT COORDINATOR as instructed. All questions and concerns addressed. Patient verbalized understanding. Medication reconciliation completed and copy given to patient. All required/requested vaccines given and copies of vaccinations given to patient. Patient encouraged to prepare to depart unit.
--- NOTE | 2019-04-24 10:10 | NUR ---
Discharge: Patient taken to vehicle ambulatory with all personal belongings, accompanied by staff and family member. No distress noted at time of departure, no adverse changes in status since initial assessment.
== END 2019-04-24 10:10 | disposition home or self-care (01) | DRG 540 ==
LOC: LDRP 04:02
PROVIDERS: ADMIT Obstetrics & Gynecology; ATTEND Obstetrics & Gynecology
PROC: 10D00Z1 Extraction of Products of Conception, Low, Open Approach (ICD-10-PCS; principal; 2019-04-20 08:09)
PROC: 30233N1 Transfusion of Nonautologous Red Blood Cells into Peripheral Vein, Percutaneous Approach (ICD-10-PCS; 2019-04-21)
PROC: 30233K1 Transfusion of Nonautologous Frozen Plasma into Peripheral Vein, Percutaneous Approach (ICD-10-PCS; 2019-04-21)
PROC: 3E0234Z Introduction of Serum, Toxoid and Vaccine into Muscle, Percutaneous Approach (ICD-10-PCS; 2019-04-24)
DX: O36.63X0 Maternal care for excessive fetal growth, third trimester, not applicable or unspecified (principal); O14.94 Unspecified pre-eclampsia, complicating childbirth; Z37.0 Single live birth; Z3A.38 38 weeks gestation of pregnancy; O90.81 Anemia of the puerperium; Z23 Encounter for immunization; O90.2 Hematoma of obstetric wound
CPT/HCPCS: 36415; 51702; 59025; 74176; 74178; 76856; 80053; 85025; 85384; 85610; 85730; 86850; 86900; 86901; 86920; 90715; 94762; 96361; 96365; 96366; 96372; 96375; G0378; J0131; J0690; J2250; J2405; J2590

== ENCOUNTER 2025-03-16 14:04 | Emergency (ER) | payer MEDICAID ==
[~2025-03-16] VITALS: Ht 160 cm; Wt 91.3 kg
[~2025-03-16 14:04] MED LIST changes: -LABE200T18 PO; +LABE200T33 PO
--- NOTE | 2025-03-16 16:02 | ED.PDOC ---
GI ASSESSMENT HPI Comments 34F presents to the Er w/ prior MHx of HTN, Hyothyroid: SHx of and the c/c of N/V/D. Pt reports that her significant other had C.Diff and that she was exposed to him, by having /D which was on/off for 2 weeks and having solid stool since Tuesday of 03/13/25. Pt states on having Upper ABD cramping which is a 7/ 10. Social Hx of Marijuana use, but denies the rest. Denies chills, fever, N/V, SOB, CP. Denies any other associated symptom's, modifiers, or recent injuries or sick contact at this time. Chief Complaint: Diarrhea Time Seen by MD: 15:10 Primary Care Provider: NONE Reviewed Notes: Nurses Notes, Medications, Allergies Allergies: Coded Allergies: NO KNOWN ALLERGIES (Unverified , 09/29/12) Home Meds Reported Medications Labetalol Hcl (Labetalol Hcl) 200 Mg Tab, 200 MG PO BID for 30 Days, MG 04/18/19 Ferrous Sulfate (Iron (Ferrous Sulfate)) 50 Mg Tab, 50 MG PO, TAB 02/21/19 Vit W/ Ferrous Fumara ( One Daily) Daily Tab, 1 TAB PO DAILY, #90 TAB 3 Refills 02/21/19 Information Source: Patient Mode of Arrival: Ambulatory Timing: Weeks Duration: Since onset Prehospital treatment: None Quality: Cramping Vomitus: None Stool: Loose Severity: Moderate Recent: None Recent Hx of: None Pain Location: Epigastric Associated sign and symptoms: Diarrhea, Abdominal Pain Past Medical History PAST MEDICAL HISTORY: Denies Surgical History: Denies all surgeries 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 History Family History Family History: Unknown Social History Smoker: Non-Smoker Alcohol: Denies ETOH Use Drugs: Denies Drug Use Lives In: Home Constitutional: denies: chills, diaphoresis, fatigue, fever, malaise, sweats, weakness, others EENTM: denies: blurred vision, double vision, ear bleeding, ear discharge, ear drainage, ear pain, ear ringing, eye pain, eye redness, hearing loss, mouth pain, mouth swelling, nasal discharge, nose bleeding, nose congestion, nose pain, photophobia, tearing, throat pain, throat swelling, voice changes, others Respiratory: denies: cough, hemoptysis, orthopnea, SOB at rest, shortness of breath, SOB with excertion, stridor, wheezing, others Cardiovascular: denies: chest pain, dizzy spells, diaphoresis, Dyspnea on exertion, edema, irregular heart beat, left arm pain, lightheadedness, palpitations, PND, syncope, others Gastrointestinal: reports: abdominal pain, diarrhea; denies: abdomen distended, blood streaked bowels, constipated, dysphagia, difficulty swallowing, hemate mesis, melena, nausea, poor appetite, poor fluid intake, rectal bleeding, rectal pain, vomiting, others Genitourinary: denies: abnormal vagina bleeding, burning, dyspareunia, dysuria, flank pain, frequency, hematuria, incontinence, pain, , vagina discharge, urgency, others Neurological: denies: dizziness, fainting, headache, left sided numbness, left sided weakness, numbness, paresthesia, pre-existing deficit, right sided numbness, right sided weakness, seizure, speech problems, tingling, tremors, weakness, others Musculoskeletal: denies: back pain, gout, joint pain, joint swelling, muscle pain, muscle stiffness, neck pain, others Integumetry: denies: bruises, change in color, change in hair/nails, dryness, laceration, lesions, lumps, rash, wounds, others Allergic/Immunocompromised: denies: Difficulty Healing, Frequent Infections, Hives, Itching, others Hematologic/Lymphatic: denies: anemia, blood clots, easy bleeding, easy bruising, swollen glands, others Endocrine: denies: excessive hunger, excessive sweating, excessive thirst, excessive urination, flushing, intolerance to cold, intolerance to heat, unexplained weight gain, unexplained weight loss, others Psychiatric: denies: anxiety, bipolar disorder, depression, hopeless, panic disorder, schizophrenia, sleepless, suicidal, others All Other Systems: Reviewed and Negative Physical Exam General Appearance: Mild Distress, Moderate Distress, Normal HEENT: Normal ENT Inspection, PERRL/EOMI Neck: Full Range of Motion, Non-Tender, Normal, Normal Inspection Respiratory: Chest Non-Tender, Lungs Clear, No Accessory Muscle Use, No Respiratory Distress, Normal Breath Sounds Cardiovascular: No Edema, No JVD, No Murmur, No Gallop, Normal Peripheral Pul ses, Regular Rate/Rhythm Breast Exam: Deferred Gastrointestinal: Distended, Epigastric, No Organomegaly, No Pulsatile Mass, Normal Bowel Sounds, Soft, Tenderness Genitalia: Deferred Pelvic: Deferred Rectal: Deferred Extremities: No calf tenderness, Normal capillary refill, Normal inspection, Normal range of motion, Non-tender, No pedal edema Musculoskeletal : Apperance: Normal Neurologic: Alert, calender operator II-XII nml as Tested, No Motor Deficits, Normal Affect, Normal Mood, No Sensory Deficits Cerebellar Function: Normal Reflexes: Normal Skin: Dry, Normal Color, Warm Peripheral Pulses: 1+ carotid (R), 1+ carotid (L) Lymphatic: No Adenopathy Was a procedure done? Was a procedure done?: No GI differential Dx Differential Diagnosis: Gastritis/PUD, Gastroenteritis, UTI, Dehydration, Diabetes/ DKA, Drug toxicity, Electrolyte Imbalance, Food Poisoning, Anemia X-Ray, Labs, Meds, VS Vital Signs Date Time Temp Pulse Resp B/P (MAP) Pulse Ox O2 Delivery O2 Flow Rate FiO2 03/16/25 16:25 98.5 96 14 135/74 (94) 98 98.5 03/16/25 16:17 Room Air* 0 21 03/16/25 14:20 98.3 97 16 138/85 (102) 97 98.3 Lab Test 03/16/25 18:34 03/16/25 16:00 Range/Units Urine Color Brown H Yellow Urine Clarity Ex.turbid Clear Urine pH 5.5 5.0-9.0 Urine Specific [place] 1.024 1.001-1.035 Urine Protein 1+ H Negative Urine Ketones 1+ H Negative Urine Blood 3+ H Negative /uL Urine Nitrite Negative Negative Urine Bilirubin Negative Negative Urine Urobilinogen Normal Negative mg/dL Urine Leukocyte Esterase 2+ Negative /uL Urine RBC 1450 0 - 4 /hpf Urine WBC Clumps Present None Seen /hpf Urine Microscopic WBC 104 H 0-5 /HPF Urine Squamous Epithelial Cells Mod <5 /hpf Urine Bacteria None seen None Seen /hpf Urine Mucus Few None Seen Urine Glucose Normal Normal mg/dL White Blood Count 12.1 H 4.4-10.8 10^3/uL Red Blood Count 4.94 4.0-5.20 10^6/uL Hemoglobin 14.7 12.2-16.2 g/dL Hematocrit 43.1 36.0-46.0 % Mean Corpuscular Volume 87.2 80.0-100.0 fL Mean Corpuscular Hemoglobin 29.7 28.0-32.0 pg Mean Corpuscular Hemoglobin Concent 34.0 32.0-36.0 g/dL Red Cell Distribution Width 13.6 11.8-14.3 % Platelet Count 179 140-450 10^3/uL Mean Platelet Volume 11.5 H 6.9-10.8 fL Neutrophils (%) (Auto) 85.4 H 37.0-80.0 % Lymphocytes (%) (Auto) 9.1 L 10.0-50.0 % Monocytes (%) (Auto) 4.2 0.0-12.0 % Eosinophils (%) (Auto) 0.8 0.0-7.0 % Basophils (%) (Auto) 0.5 0.0-2.0 % Neutrophils # (Auto) 10.4 H 1.6-8.6 10 ^3/uL Lymphocytes # (Auto) 1.1 0.4-5.4 10 ^3/uL Monocytes # (Auto) 0.5 0-1.3 10 ^3/uL Eosinophils # (Auto) 0.1 0-0.8 10 ^3/uL Basophils # (Auto) 0.1 0-0.2 10 ^3/uL Nucleated Red Blood Cells 0.0 % Sodium Level 142 136-145 mmol/L Potassium Level 3.7 3.5-5.1 mmol/L Chloride Level 111 H 98-107 mmol/L Carbon Dioxide Level 21 20-31 mmol/L Anion Gap 10 5-15 Blood Urea Nitrogen 9 9-23 mg/dL Creatinine 0.77 0.550-1.02 mg/dL Glomerular Filtration Rate Calc 104 >90 mL/min BUN/Creatinine Ratio 11.7 10.0-20.0 Serum Glucose 93 74-106 mg/dL Calcium Level 10.1 8.7-10.4 mg/dL Magnesium Level 1.8 1.6-2.6 mg/dL Current Medications Medications (Trade) Dose Ordered Sig/Kera Route Start Time Stop Time Status Last Admin Sodium Chloride 1,000 ml @ 1,000 mls/hr Q1H ONCE IVB 03/16/25 16:00 03/16/25 16:59 DC 03/16/25 16:29 Metronidazole 100 ml @ 100 mls/hr ONCE ONCE IV 03/16/25 16:00 03/16/25 16:59 DC 03/16/25 16:44 Vancomycin HCl (Vancomycin Hydrochloride) 500 mg ONCE ONCE PO 03/16/25 16:00 03/16/25 16:01 DC 03/16/25 16:44 X-Ray, Labs, Meds, VS Comment Course in the emergency department eventful patient came in with nausea vomiting and diarrhea and its position to C [place]icile [place] [id number] with 85% neutrophils and normal H&H BNP normal Magnesium 1.8 Urine shows 3+ blood and 2+ leukocyte esterase Patient will be discharged home to follow up with the her PCP A culture for C difficile has been done Patient also received Flagyl IV and vancomycin p.o. Time of 1ST Reevaluation: 15:10 Reevaluation 1ST: Unchanged Time of 2ND Reevaluation: 18:49 Reevaluation 2ND: Improved Consultation: PCP Patient Education/Counseling: Diagnosis, Treatment, Prognosis, Need For Follow Up Family Education/Counseling: Diagnosis, Treatment, Prognosis, Need For Follow Up Departure 1 Departure Time of Disposition: 18:51 Impression: Primary Impression: Acute gastroenteritis Additional Impressions: C. difficile diarrhea UTI (urinary tract infection) Disposition: 01 HOME / SELF CARE / HOMELESS Condition: Fair Additional Instructions: Push fluids and follow up with your PCP Take all precautions in your house home e-Prescriptions Metronidazole (Flagyl) 500 Mg Tab 1 TAB PO TID for 7 Days, #21 TAB Prov: LISA LONDON MD 03/16/25 Vancomycin Hcl (Vancomycin Po) 250 Mg So 250 MG PO B.i.d. for 5 Days, #10 ML Prov: LISA LONDON MD 03/16/25 Discharged With: Self Critical Care Note Critical Care Time?: No Stability Stability form required: No Heart Score Heart Score: Heart Score Response (Comments) Value History N/A 0 EKG N/A 0 Age <45 0 Risk Factors No known risk factors 0 Troponin N/A 0 Total 0 I personally scribed for LISA LONDON MD ([email or web address]) on 03/16/25 at 16:02. Electronically submitted by Martin Knight ([email or web address]). LISA LONDON MD March 16, 2025 16:02
[2025-03-16 16:23] LABS: Basophils # (auto) 0.1 10 ^3/uL (0-0.2); Basophils % (auto) 0.5 % (0.0-2.0); Eosinophils # (auto) 0.1 10 ^3/uL (0-0.8); Eosinophils % (auto) 0.8 % (0.0-7.0); Hematocrit 43.1 % (36.0-46.0); Hemoglobin 14.7 g/dL (12.2-16.2); Lymphocytes # (auto) 1.1 10 ^3/uL (0.4-5.4); Lymphocytes % (auto) 9.1 % (10.0-50.0); Mean Corpuscular Hemoglobin 29.7 pg (28.0-32.0); Mean Corpuscular Volume 87.2 fL (80.0-100.0); Monocytes # (auto) 0.5 10 ^3/uL (0-1.3); Monocytes % (auto) 4.2 % (0.0-12.0); Neutrophils # (auto) 10.4 10 ^3/uL (1.6-8.6); Neutrophils % (auto) 85.4 % (37.0-80.0); Platelet Count (auto) 179 10^3/uL (140-450); Red Blood Cells 4.94 10^6/uL (4.0-5.20); Red Cell Distribution Width 13.6 % (11.8-14.3); White Blood Cell 12.1 10^3/uL (4.4-10.8)
[2025-03-16 16:25] VITALS: BP 135/74; PULSE 96; RESP 14; TEMP 98.5; O2SAT 98
[2025-03-16] MEDS: SODIUM CHLORIDE 0.9% 1,000 ML IVB ONE (16:29)
[2025-03-16 16:31] LABS: Potassium 3.7 mmol/L (3.5-5.1); Sodium 142 mmol/L (136-145)
[2025-03-16 16:32] LABS: Anion Gap 10 (5-15); Calcium 10.1 mg/dL (8.7-10.4); Carbon Dioxide 21 mmol/L (20-31)
[2025-03-16 16:34] LABS: Chloride 111 mmol/L (98-107)
[2025-03-16 16:37] LABS: BUN/Creatinine Ratio 11.7 (10.0-20.0); Glucose 93 mg/dL (74-106)
[2025-03-16 16:38] LABS: Blood Urea Nitrogen 9 mg/dL (9-23); Magnesium 1.8 mg/dL (1.6-2.6)
[2025-03-16] MEDS: metroNIDAZOLE 500MG/100ML 100 ML IV ONE (16:44)
[2025-03-16] MEDS: VANCOMYCIN HCL 250 MG CAP PO ONE (16:44)
[2025-03-16 18:36] LABS: Urine Bacteria None Seen /hpf (None Seen)
[2025-03-16 18:41] LABS: Urine Blood 3+ /uL (Negative); Urine Clarity Ex.Turbid (Clear); Urine Color Brown (Yellow); Urine Mucus FEW (None Seen); Urine Protein, UAD 1+ (Negative); Urine Specific Gravity 1.024 (1.001-1.035); Urine Squamous Epithelial Cell MOD /hpf (<5); Urine Urobilinogen Normal (Negative); Urine WBC 104 /HPF (0-5); Urine WBC Clumps PRESENT /hpf (None Seen); Urine pH 5.5 (5.0-9.0)
[2025-03-16] MEDS ORDERED: VANC250PO PO (18:54)
[2025-03-16] MEDS ORDERED: METR-344 PO (18:54)
== END 2025-03-16 19:24 | disposition home or self-care (01) ==
LOC: ER 14:07
DX: K52.9 Noninfective gastroenteritis and colitis, unspecified (principal); N39.0 Urinary tract infection, site not specified; A04.72 Enterocolitis due to Clostridium difficile, not specified as recurrent; I10 Essential (primary) hypertension; E03.9 Hypothyroidism, unspecified; F12.90 Cannabis use, unspecified, uncomplicated; Z79.899 Other long term (current) drug therapy
CPT/HCPCS: 36415; 80048; 81001; 83735; 85025; 87493; 96365; 99284; J3490; J7030; 96361